=== PATIENT | male | born 1990 | race Caucasian/White ===

== ENCOUNTER 2019-04-19 18:46 | Emergency (ER) | payer BC ==
[2019-04-19 19:38] LABS: Appearance CLEAR (CLEAR); Bilirubin NEGATIVE (NEGATIVE); Blood NEGATIVE Ery/ul (0-5); Glucose NEGATIVE (NEGATIVE); Ketones NEGATIVE (NEGATIVE); Leukocyte Esterase NEGATIVE (NEGATIVE); Mucus SLIGHT /HPF (NEGATIVE); Nitrite NEGATIVE (NEGATIVE); Protein,Urine Dip NEGATIVE (Negative); Specific Gravity 1.003 (1.005-1.025); Urobilinogen NEGATIVE mg/dL (0-1)
[2019-04-19 19:49] LABS: BASOPHIL % 0.2 % (0.0-0.4); Basophil (Absolute #) 0.02 (0-0.4); Eosinophil % 0.5 % (0.00-5.0); Eosinophil (Absolute #) 0.04 (0-0.5); Granulocyte Absolute (ANC) 6.69 (1.4-6.9); Granulocytes % 83.4 % (36.0-66.0); Hemoglobin 14.3 gm/dl (12.5-18.0); Lymphocyte (Absolute #) 1.12 (1.0-4.6); Mean Cell Volume 88.4 fl (78-100); Mean Corpuscular Hemoglobin 30.1 pg (26-32); Mean Platelet Volume 9.4 fl (6-9.5); Monocyte (Absolute #) 0.15 (0.0-1.3); Monocytes % 1.9 % (0.0-12.0); Platelet Count 328 K/mm3 (150-450); Red Blood Count 4.75 M/mm3 (4.1-5.6); Red Cell Distribution Width 12.7 % (11.5-14.0)
[2019-04-19 20:12] LABS: ALBUMIN 4.8 g/dL (3.5-5.0); ALKALINE PHOSPHATASE 57 U/L (38-126); ANION GAP 14.6 MEQ/L (5-15); BLOOD UREA NITROGEN 15 mg/dL (9-20); CHLORIDE 108 mmol/L (98-107); Calcium 9.8 mg/dL (8.4-10.2); Carbon Dioxide 23 mmol/L (22-30); Glucose 120 mg/dL (74-106); NT PRO BNP 51.6 pg/mL (0-450); Potassium 4.5 mmol/L (3.5-5.1); SGOT/AST 27 U/L (17-59); SGPT/ALT 32 U/L (0-50); SODIUM 141 mmol/L (137-145); Total Protein 8.5 g/dL (6.3-8.2)
[2019-04-19] MEDS ORDERED: Levofloxacin 250MG Tablet PO ONE (22:21)
[2019-04-19] MEDS ORDERED: Levofloxacin 250MG Tablet ONE (22:25)
--- NOTE | 2019-04-19 22:29 | ERPHSYRPT ---
- History of Present Illness Source: patient Exam Limitations: no limitations Patient Subjective Stated Complaint: short of breath, lethargic, weak, blood in stool, diarrhea, hx of IBS, is on a tapering dose of prednisone and taking Augmentin, he had went to his doctor about 4-5 days ago and first they told him that he had bronchitis and then they told him that the xray was clear, cough Triage Nursing Assessment: Pt walks into the ER with no issues with gait, c/o of not feeling well for the past week, short of breath, weak, hypertensive, pulses normal, strong family history of cardio problems, bright red blood in stools last week, Physician History: Pt is a 28 y/o male with a recent h/o SOB, pain in his chest on left laterally, with exertion. Pt was seen by his PCP, that did some lab work, but did not check D dimer. As pt is a non smoker, and was very SOB and hypoxic, his that is an ER nurse, brought him to the ER for a work up. Pt has no palpitations, or diaphoresis. No F/C/S. N9o N/V/D or abdominal pain. Timing/Duration: day(s) Activities at Onset: none Severity of Dyspnea-Max: moderate Severity of Dyspnea-Current: mild Possible Cause: no prior episodes Modifying Factors: Improves With: lying down, rest Associated Symptoms: painful breathing Allergies/Adverse Reactions: acetaminophen [From Vicodin] Adverse Reaction (Verified 04/19/19 19:09) hydrocodone [From Vicodin] Adverse Reaction (Verified 04/19/19 19:09) - Review of Systems Constitutional: No Fever, No Chills Eyes: No Symptoms Ears, Nose, & Throat: No Symptoms Respiratory: Dyspnea, Dyspnea on Exertion (HERNANDEZ), Other (pluritic chest pain) Cardiac: No Chest Pain, No Edema, No Syncope Abdominal/Gastrointestinal: No Abdominal Pain, No Nausea, No Vomiting, No Diarrhea Genitourinary Symptoms: No Dysuria Musculoskeletal: No Back Pain, No Neck Pain Neurological: No Dizziness, No Focal Weakness, No Sensory Changes - Past Medical History Respiratory History: Other GI Medical History: GERD, Irritable Bowel Psycho-Social History: Anxiety Other Medical History: Neurocardiogenic syncope - Past Surgical History Past Surgical History: No Other Surgical History: bone spur on femur, toothpick removed from foot - Social History Smoking Status: Never smoker Exposure to second hand smoke: No Drug Use: none Patient Lives Alone: No - Nursing Vital Signs Nursing Vital Signs: Initial Vital Signs Pulse Rate 73 04/19/19 18:57 Respiratory Rate 16 04/19/19 18:57 Blood Pressure 162/93 04/19/19 18:57 O2 Sat by Pulse Oximetry 98 04/19/19 18:57 Pain Scale Pain Intensity 0 - Physical Exam General Appearance: no apparent distress, alert Eye Exam: PERRL/EOMI Ears, Nose, Throat Exam: hearing grossly normal Neck Exam: normal inspection, supple Respiratory Exam: normal breath sounds Cardiovascular/Chest Exam: normal heart sounds, regular rate/rhythm Abdominal/Gastrointestinal Exam: soft, No tenderness, No distention, No mass Extremity Exam: non-tender, normal range of motion, normal inspection, no calf tenderness, no pedal edema Neurologic Exam: alert, oriented x 3, cooperative, visual education director II-XII nml as tested, sensation nml, No motor deficits Skin Exam: normal color, warm, dry SpO2 Interpretation: normal SpO2: 96 O2 Delivery: Room Air - Course Nursing assessment & vital signs reviewed: Yes EKG Interpreted by Me: RATE (71 bpm), Sinus Rhythm, NORMAL AXIS, NORMAL QRS - CT Exams Chest CT Interpretation: Tele-radiologist Report (Moderate segmental PNA in the posterior segment right lowel lobe) Ordered Tests: Active Orders 24 hr Category Date Time Status CHEST WITHOUT CONTRAST [CT] Stat Exams 04/19/19 21:09 Taken CBC W DIFF Stat Lab 04/19/19 19:45 Completed CMP Stat Lab 04/19/19 19:45 Completed D-DIMER QUANTITATION Stat Lab 04/19/19 19:45 Completed NT PRO BNP Stat Lab 04/19/19 19:45 Completed Urinalysis with Microscopy Stat Lab 04/19/19 19:31 Completed Medication Summary Discontinued Medications Generic Name Dose Route Start Last Admin Trade Name Freq PRN Reason Stop Dose Admin Levofloxacin 750 mg 04/19/19 22:21 Levofloxacin 250mg Tablet PO 04/19/19 22:22 STAT ONE Lab/Rad Data: Laboratory Result Diagrams 04/19/19 19:45 04/19/19 19:45 Laboratory Results 04/19/19 04/19/19 04/19/19 Range/Units 19:45 19:45 19:45 WBC 8.0 (4.0-10.5) K/mm3 RBC 4.75 (4.1-5.6) M/mm3 Hgb 14.3 (12.5-18.0) gm/dl Hct 42.0 (42-50) % MCV 88.4 (78-100) fl MCH 30.1 (26-32) pg MCHC 34.0 (32-36) g/dl RDW 12.7 (11.5-14.0) % Plt Count 328 (150-450) K/mm3 MPV 9.4 (6-9.5) fl Gran % 83.4 H (36.0-66.0) % Eos # (Auto) 0.04 (0-0.5) Absolute Lymphs (auto) 1.12 (1.0-4.6) Absolute Monos (auto) 0.15 (0.0-1.3) Lymphocytes % 14.0 L (24.0-44.0) % Monocytes % 1.9 (0.0-12.0) % Eosinophils % 0.5 (0.00-5.0) % Basophils % 0.2 (0.0-0.4) % Absolute Granulocytes 6.69 (1.4-6.9) Basophils # 0.02 (0-0.4) D-Dimer < 215 L (215-500) ng/mL Sodium 141 (137-145) mmol/L Potassium 4.5 (3.5-5.1) mmol/L Chloride 108 H (98-107) mmol/L Carbon Dioxide 23 (22-30) mmol/L Anion Gap 14.6 (5-15) MEQ/L BUN 15 (9-20) mg/dL Creatinine 1.00 (0.66-1.25) mg/dL Estimated GFR > 60.0 ML/MIN Glucose 120 H (74-106) mg/dL Calcium 9.8 (8.4-10.2) mg/dL Total Bilirubin 0.70 (0.2-1.3) mg/dL AST 27 (17-59) U/L ALT 32 (0-50) U/L Alkaline Phosphatase 57 (38-126) U/L NT-Pro-B Natriuret Pep 51.6 (0-450) pg/mL Serum Total Protein 8.5 H (6.3-8.2) g/dL Albumin 4.8 (3.5-5.0) g/dL Urine Color (YELLOW) Urine Appearance (CLEAR) Urine pH (5-6) Ur Specific Golden (1.005-1.025) Urine Protein (Negative) Urine Ketones (NEGATIVE) Urine Blood (0-5) Charli/ul Urine Nitrite (NEGATIVE) Urine Bilirubin (NEGATIVE) Urine Urobilinogen (0-1) mg/dL Ur Leukocyte Esterase (NEGATIVE) Urine WBC (Auto) (0-5) /HPF Urine RBC (Auto) (0-2) /HPF U Epithel Cells (Auto) (FEW) /HPF Urine Bacteria (Auto) (NEGATIVE) /HPF Urine Mucus (Auto) (NEGATIVE) /HPF Urine Glucose (NEGATIVE) mg/dL 04/19/19 Range/Units 19:31 WBC (4.0-10.5) K/mm3 RBC (4.1-5.6) M/mm3 Hgb (12.5-18.0) gm/dl Hct (42-50) % MCV (78-100) fl MCH (26-32) pg MCHC (32-36) g/dl RDW (11.5-14.0) % Plt Count (150-450) K/mm3 MPV (6-9.5) fl Gran % (36.0-66.0) % Eos # (Auto) (0-0.5) Absolute Lymphs (auto) (1.0-4.6) Absolute Monos (auto) (0.0-1.3) Lymphocytes % (24.0-44.0) % Monocytes % (0.0-12.0) % Eosinophils % (0.00-5.0) % Basophils % (0.0-0.4) % Absolute Granulocytes (1.4-6.9) Basophils # (0-0.4) D-Dimer (215-500) ng/mL Sodium (137-145) mmol/L Potassium (3.5-5.1) mmol/L Chloride (98-107) mmol/L Carbon Dioxide (22-30) mmol/L Anion Gap (5-15) MEQ/L BUN (9-20) mg/dL Creatinine (0.66-1.25) mg/dL Estimated GFR ML/MIN Glucose (74-106) mg/dL Calcium (8.4-10.2) mg/dL Total Bilirubin (0.2-1.3) mg/dL AST (17-59) U/L ALT (0-50) U/L Alkaline Phosphatase (38-126) U/L NT-Pro-B Natriuret Pep (0-450) pg/mL Serum Total Protein (6.3-8.2) g/dL Albumin (3.5-5.0) g/dL Urine Color COLORLESS (YELLOW) Urine Appearance CLEAR (CLEAR) Urine pH 8.0 (5-6) Ur Specific Golden 1.003 (1.005-1.025) Urine Protein NEGATIVE (Negative) Urine Ketones NEGATIVE (NEGATIVE) Urine Blood NEGATIVE (0-5) Charli/ul Urine Nitrite NEGATIVE (NEGATIVE) Urine Bilirubin NEGATIVE (NEGATIVE) Urine Urobilinogen NEGATIVE (0-1) mg/dL Ur Leukocyte Esterase NEGATIVE (NEGATIVE) Urine WBC (Auto) NONE (0-5) /HPF Urine RBC (Auto) NONE (0-2) /HPF U Epithel Cells (Auto) NONE (FEW) /HPF Urine Bacteria (Auto) NONE (NEGATIVE) /HPF Urine Mucus (Auto) SLIGHT (NEGATIVE) /HPF Urine Glucose NEGATIVE (NEGATIVE) mg/dL - Progress Progress: improved Air Movement: good Progress Note: 04/19/19 22:30 Pt was seen and evaluated. All lab work was normal, as well as CXR at his PCP. I decided to do a CT to r/o any other pathology. Pt was diagnosed with R LL PNA. He got Levaquin 750mg PO in the ED, and a prescription will be e-scribed for him. Blood Culture(s) Obtained: No Antibiotics given: Yes Will see patient in: office Counseled pt/family regarding: need for follow-up - Departure Departure Disposition: Home Clinical Impression: RLL pneumonia Condition: Stable Critical Care Time: No Referrals: Provider,Unknown [Primary Care Provider] - Additional Instructions: Finish Levaquin as ordered. F/U with PCP. Prescriptions: Levofloxacin [Levaquin] 500 mg PO DAILY #5 tablet
[2019-04-19 22:45] VITALS: BP 128/66; PULSE 77; O2SAT 97
--- NOTE | 2019-04-20 08:33 | XRAY ---
Indication: Short of breath and fatigue one week. Multiple contiguous axial images obtained through the chest without contrast as ordered. Comparison: None Lungs demonstrate small focus posterior right lower lobe airspace opacity. Elsewhere minimal bibasilar dependent atelectasis. No suspicious mass, nodule, or effusion. Heart is not enlarged. Aorta is normal in course and caliber. No pathologic mediastinal lymphadenopathy. Bony thorax intact. Limited upper abdomen unremarkable. Impression: Small focus right lower lobe airspace disease. Comment: Preliminary interpretation was made by [facility]. No discrepancy. CTDI 17.10
== END 2019-04-19 22:43 | disposition home or self-care (01) ==
LOC: ED 18:46
DX: J18.9 Pneumonia, unspecified organism (principal)
CPT/HCPCS: 36000; 36415; 71250; 80053; 81001; 83880; 85025; 85379; 99284; A9270-GY

== ENCOUNTER 2020-06-13 16:40 | Emergency (ER) | payer BC ==
[2020-06-13] MEDS ORDERED: BABY ASPIRIN 81 MG CHEW PO ONE (16:57)
--- NOTE | 2020-06-13 16:57 | ERPHSYRPT ---
- History of Present Illness Time Seen by Provider: 06/13/20 16:45 Historian: patient Exam Limitations: no limitations Patient Subjective Stated Complaint: Chest pain Triage Nursing Assessment: Patient ambulated back to ED and transferred self to bed. Patient A+O X3. Patient's skin pink, warm and dry. Patient complains of intermittent chest pain 6/10 sharp pain in the middle of the chest to left side that started about 1000 today. Patient's lungs clear a/p mark. No edema noted. Heart tones audible. Physician History: This is a 29-year-old white male with a history of panic attacks who presents with localized, sharp substernal, central chest pain that began suddenly at 10 AM this morning. The pain has not let up. Patient became concerned. 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 Also, he recently had a child. Patient is not short of breath. He has not taken any nitroglycerin or aspirin today. He has no documented cardiac disease. He has not had a fever or cough. Timing/Duration: today Activities at Onset: none Quality: sharpness Location: substernal, central Chest Pain Radiation: no radiation Severity of Pain-Max: mild Severity of Pain-Current: mild Modifying Factors: Improves With: nothing Prior Chest Pain/Cardiac Workup: no prior cardiac workup Nitro Today/Relief: no nitro taken today Aspirin Treatment Today: no aspirin today Allergies/Adverse Reactions: acetaminophen [From Vicodin] Adverse Reaction (Verified 06/13/20 16:43) hydrocodone [From Vicodin] Adverse Reaction (Verified 06/13/20 16:43) Home Medications: No Reportable Medications [No Reported Medications] 06/13/20 [History] Hx Influenza Vaccination/Date Given: No Hx Pneumococcal Vaccination/Date Given: No Immunizations Up to Date: Yes Travel Risk - International Travel Have you traveled outside of the country in past 3 weeks: No - Coronavirus Screening Are you exhibiting any of the following symptoms?: No Close contact with a COVID-19 positive Pt in past 14-21 Days: No - Review of Systems Constitutional: No Symptoms Eyes: No Symptoms Ears, Nose, & Throat: No Symptoms Respiratory: No Symptoms Cardiac: Chest Pain Abdominal/Gastrointestinal: No Symptoms Genitourinary Symptoms: No Symptoms Musculoskeletal: No Symptoms Skin: No Symptoms Neurological: No Symptoms Psychological: No Symptoms Endocrine: No Symptoms Hematologic/Lymphatic: No Symptoms Immunological/Allergic: No Symptoms All Other Systems: Reviewed and Negative - Past Medical History Neurological History: No Pertinent History ENT History: No Pertinent History Cardiac History: No Pertinent History Respiratory History: Other Endocrine Medical History: No Pertinent History Musculoskeletal History: No Pertinent History GI Medical History: GERD, Irritable Bowel History: No Pertinent History Psycho-Social History: Anxiety Male Reproductive Disorders: No Pertinent History Other Medical History: Neurocardiogenic syncope - Past Surgical History Past Surgical History: Yes Neuro Surgical History: No Pertinent History Respiratory: No Pertinent History Gastrointestinal: No Pertinent History Genitourinary: No Pertinent History Musculoskeletal: No Pertinent History Male Surgical History: No Pertinent History Other Surgical History: bone spur on femur and left scapula toothpick removed from foot, ballon sinusplasty, nodules on right lung - Social History Smoking Status: Never smoker Exposure to second hand smoke: No Drug Use: none Patient Lives Alone: No - Nursing Vital Signs Nursing Vital Signs: Initial Vital Signs Temperature 98.1 F 06/13/20 16:43 Pulse Rate 78 06/13/20 16:43 Respiratory Rate 18 06/13/20 16:43 Blood Pressure 151/92 06/13/20 16:43 O2 Sat by Pulse Oximetry 99 06/13/20 16:43 Pain Scale Pain Intensity 5 - Physical Exam General Appearance: no apparent distress, alert, anxiety Eye Exam: PERRL/EOMI, eyes nml inspection Ears, Nose, Throat Exam: normal ENT inspection, moist mucous membranes Neck Exam: normal inspection, non-tender, supple, full range of motion Respiratory Exam: normal breath sounds, chest tenderness, lungs clear, airway intact, No respiratory distress Cardiovascular Exam: regular rate/rhythm, normal heart sounds, normal peripheral pulses Gastrointestinal/Abdomen Exam: soft, normal bowel sounds, No tenderness Rectal Exam: not done Back Exam: normal inspection, normal range of motion, No CVA tenderness, No vertebral tenderness Extremity Exam: normal inspection, normal range of motion, pelvis stable Neurologic Exam: alert, oriented x 3, cooperative, community dietitian II-XII nml as tested Skin Exam: normal color, warm, dry Lymphatic Exam: No adenopathy SpO2 Interpretation: normal SpO2: 99 O2 Delivery: Room Air - Course Nursing assessment & vital signs reviewed: Yes EKG Interpreted by Me: RATE (71), Sinus Rhythm, NORMAL AXIS, NORMAL INTERVALS, NORMAL QRS, NORMAL ST-T, Other (No acute ischemic changes. Comparison EKG dated 04/19/2019 shows no changes when compared to this EKG.) Ordered Tests: Active Orders 24 hr Category Date Time Status Patient Services Assistant STAT Care 06/13/20 16:58 Active EKG-ER Only STAT Care 06/13/20 16:57 Active IV Insertion STAT Care 06/13/20 16:57 Active Pulse Oximetry (ED) STAT Care 06/13/20 16:57 Active CHEST 1 VIEW (PORTABLE) Stat Exams 06/13/20 16:58 Taken CBC W DIFF Stat Lab 06/13/20 17:00 Completed CMP Stat Lab 06/13/20 17:00 Completed D-DIMER QUANTITATIVE Stat Lab 06/13/20 17:00 Completed TROPONIN Q3H Lab 06/13/20 17:00 Completed TROPONIN Q3H Lab 06/13/20 20:00 Ordered TROPONIN Q3H Lab 06/13/20 23:00 Ordered TROPONIN Q3H Lab 06/14/20 02:00 Ordered TROPONIN Q3H Lab 06/14/20 05:00 Ordered Medication Summary Discontinued Medications Generic Name Dose Route Start Last Admin Trade Name Freq PRN Reason Stop Dose Admin Aspirin 324 mg 06/13/20 16:57 06/13/20 17:00 Baby Aspirin 81 Mg Chew PO 06/13/20 16:58 324 mg STAT ONE Administration Lab/Rad Data: Laboratory Result Diagrams 06/13/20 17:00 06/13/20 17:00 Laboratory Results 06/13/20 06/13/20 06/13/20 Range/Units 17:00 17:00 17:00 WBC (4.0-10.5) K/mm3 RBC (4.1-5.6) M/mm3 Hgb (12.5-18.0) gm/dl Hct (42-50) % MCV (78-100) fl MCH (26-32) pg MCHC (32-36) g/dl RDW (11.5-14.0) % Plt Count (150-450) K/mm3 MPV (7.5-11.0) fl Gran % (36.0-66.0) % Eos # (Auto) (0-0.5) Absolute Lymphs (auto) (1.0-4.6) Absolute Monos (auto) (0.0-1.3) Lymphocytes % (24.0-44.0) % Monocytes % (0.0-12.0) % Eosinophils % (0.00-5.0) % Basophils % (0.0-0.4) % Absolute Granulocytes (1.4-6.9) Basophils # (0-0.4) D-Dimer < 215 L (215-500) ng/mL Sodium 140 (137-145) mmol/L Potassium 4.1 (3.5-5.1) mmol/L Chloride 106 (98-107) mmol/L Carbon Dioxide 26 (22-30) mmol/L Anion Gap 11.3 (5-15) MEQ/L BUN 16 (9-20) mg/dL Creatinine 1.01 (0.66-1.25) mg/dL Estimated GFR > 60.0 ML/MIN Glucose 114 H (74-106) mg/dL Calcium 9.6 (8.4-10.2) mg/dL Total Bilirubin 0.70 (0.2-1.3) mg/dL AST 31 (17-59) U/L ALT 44 (0-50) U/L Alkaline Phosphatase 55 (38-126) U/L Troponin I < 0.012 (0.000-0.034) ng/mL Serum Total Protein 8.7 H (6.3-8.2) g/dL Albumin 5.0 (3.5-5.0) g/dL 06/13/20 Range/Units 17:00 WBC 6.7 (4.0-10.5) K/mm3 RBC 4.97 (4.1-5.6) M/mm3 Hgb 15.0 (12.5-18.0) gm/dl Hct 43.9 (42-50) % MCV 88.3 (78-100) fl MCH 30.2 (26-32) pg MCHC 34.2 (32-36) g/dl RDW 12.6 (11.5-14.0) % Plt Count 335 (150-450) K/mm3 MPV 9.3 (7.5-11.0) fl Gran % 39.0 (36.0-66.0) % Eos # (Auto) 0.28 (0-0.5) Absolute Lymphs (auto) 3.10 (1.0-4.6) Absolute Monos (auto) 0.68 (0.0-1.3) Lymphocytes % 46.3 H (24.0-44.0) % Monocytes % 10.1 (0.0-12.0) % Eosinophils % 4.2 (0.00-5.0) % Basophils % 0.4 (0.0-0.4) % Absolute Granulocytes 2.61 (1.4-6.9) Basophils # 0.03 (0-0.4) D-Dimer (215-500) ng/mL Sodium (137-145) mmol/L Potassium (3.5-5.1) mmol/L Chloride (98-107) mmol/L Carbon Dioxide (22-30) mmol/L Anion Gap (5-15) MEQ/L BUN (9-20) mg/dL Creatinine (0.66-1.25) mg/dL Estimated GFR ML/MIN Glucose (74-106) mg/dL Calcium (8.4-10.2) mg/dL Total Bilirubin (0.2-1.3) mg/dL AST (17-59) U/L ALT (0-50) U/L Alkaline Phosphatase (38-126) U/L Troponin I (0.000-0.034) ng/mL Serum Total Protein (6.3-8.2) g/dL Albumin (3.5-5.0) g/dL - Progress Progress: improved, re-examined Air Movement: good Progress Note: 06/13/20 18:11 Chest x-ray reveals no evidence of any acute cardiopulmonary process Blood Culture(s) Obtained: No Antibiotics given: No Counseled pt/family regarding: lab results, diagnosis, need for follow-up, rad results - Departure Departure Disposition: Home Clinical Impression: Non-cardiac chest pain Condition: Stable Critical Care Time: No Referrals: Provider,Unknown [Primary Care Provider] - Instructions: Chest Pain (DC) Additional Instructions: Drink plenty of fluids. Follow-up with your primary care physician for further management of your symptoms.
[2020-06-13 17:11] LABS: Absolute Neutrophil Ct (ANC) 2.61 (1.4-6.9); BASOPHIL % 0.4 % (0.0-0.4); Basophil (Absolute #) 0.03 (0-0.4); Eosinophil % 4.2 % (0.00-5.0); Eosinophil (Absolute #) 0.28 (0-0.5); Hematocrit 43.9 % (42-50); Lymphocytes % 46.3 % (24.0-44.0); Mean Cell Volume 88.3 fl (78-100); Mean Corpuscular Hemoglobin 30.2 pg (26-32); Mean Corpuscular Hgb Concent. 34.2 g/dl (32-36); Mean Platelet Volume 9.3 fl (7.5-11.0); Monocyte (Absolute #) 0.68 (0.0-1.3); Monocytes % 10.1 % (0.0-12.0); Platelet Count 335 K/mm3 (150-450); Red Blood Count 4.97 M/mm3 (4.1-5.6); Red Cell Distribution Width 12.6 % (11.5-14.0); White Blood Count 6.7 K/mm3 (4.0-10.5)
[2020-06-13 17:22] LABS: ALKALINE PHOSPHATASE 55 U/L (38-126); ANION GAP 11.3 MEQ/L (5-15); BLOOD UREA NITROGEN 16 mg/dL (9-20); CHLORIDE 106 mmol/L (98-107); Calcium 9.6 mg/dL (8.4-10.2); Carbon Dioxide 26 mmol/L (22-30); Creatinine 1 1.01 mg/dL (0.66-1.25); EST GLOMERULAR FILTRATION RATE > 60.0 ML/MIN; Glucose 114 mg/dL (74-106); Potassium 4.1 mmol/L (3.5-5.1); SGOT/AST 31 U/L (17-59); SGPT/ALT 44 U/L (0-50); SODIUM 140 mmol/L (137-145); Total Protein 8.7 g/dL (6.3-8.2)
[2020-06-13 18:11] VITALS: O2SAT 99
[2020-06-13 18:33] VITALS: BP 136/80; PULSE 64
--- NOTE | 2020-06-13 20:35 | XRAY ---
Indication: Chest pain. Comparison: December 05, 2008. Portable chest again demonstrates normal heart, lungs, and bony thorax.
== END 2020-06-13 18:36 | disposition home or self-care (01) ==
LOC: ED 16:40
DX: R07.89 Other chest pain (principal)
CPT/HCPCS: 36000; 36415; 71045; 80053; 84484; 85025; 85379; 93005; 93041; 94760; 99284; A9270-GY

== ENCOUNTER 2022-03-18 21:48 | Emergency (ER) | payer BC ==
--- NOTE | 2022-03-18 22:43 | ERPHSYRPT ---
- History of Present Illness Time Seen by Provider: 03/18/22 22:00 Source: patient, family Exam Limitations: no limitations Patient Subjective Stated Complaint: rt lower leg swelling and edema Triage Nursing Assessment: pt c/o rt lower leg pain with some swelling. Pt began feeling pain/discomfort yesterday but noticed swelling and tightness today. Pt describes it as a constant dull ache. Physician History: This is a 31-year-old, active white male who states that yesterday he started having some pain in his right lower extremity below the knee. It is actually worsened and he is having some swelling to the medial aspect of his tibia on the right side with cramping in his right calf. Patient has no history of DVTs and no history of bleeding or clotting disorders. Patient also has not had a cough or shortness of breath or hemoptysis. He has no chest pain. He has not been traveling long distance in the car or in a plane. He is concerned for blood clot. Occurred: yesterday Quality: constant, aching Severity of Pain-Max: mild Severity of Pain-Current: mild Lower Extremities Pain: leg: right (Below the knee) Modifying Factors: Improves With: movement Associated Symptoms: none Allergies/Adverse Reactions: moxifloxacin Allergy (Verified 03/18/22 22:06) Nausea and Vomiting acetaminophen [From Vicodin] Adverse Reaction (Verified 03/18/22 22:05) hydrocodone [From Vicodin] Adverse Reaction (Verified 03/18/22 22:05) Home Medications: Omeprazole 40 mg PO DAILY 03/18/22 [History] Hx Tetanus, Diphtheria Vaccination/Date Given: Yes Hx Influenza Vaccination/Date Given: No Hx Pneumococcal Vaccination/Date Given: No Immunizations Up to Date: Yes Travel Risk - International Travel Have you traveled outside of the country in past 3 weeks: No - Coronavirus Screening Are you exhibiting any of the following symptoms?: No Close contact with a COVID-19 positive Pt in past 14-21 Days: No - Vaccine Status Have you recieved a Covid-19 vaccination: No - Review of Systems Constitutional: No Symptoms Eyes: No Symptoms Ears, Nose, & Throat: No Symptoms, Throat Swelling Cardiac: No Symptoms Abdominal/Gastrointestinal: No Symptoms Genitourinary Symptoms: No Symptoms Musculoskeletal: Other (Achiness, cramping right calf with associated swelling) Skin: No Symptoms Neurological: No Symptoms Psychological: No Symptoms Endocrine: No Symptoms Hematologic/Lymphatic: No Symptoms Immunological/Allergic: No Symptoms All Other Systems: Reviewed and Negative - Past Medical History Pertinent Past Medical History: Yes Neurological History: No Pertinent History ENT History: No Pertinent History Cardiac History: No Pertinent History Respiratory History: Other Endocrine Medical History: No Pertinent History Musculoskeletal History: No Pertinent History GI Medical History: GERD, Irritable Bowel History: No Pertinent History Psycho-Social History: Anxiety Male Reproductive Disorders: No Pertinent History Other Medical History: Neurocardiogenic syncope, nodules on rt lung, bone spur to scapula - Past Surgical History Past Surgical History: Yes Neuro Surgical History: No Pertinent History Respiratory: No Pertinent History Gastrointestinal: No Pertinent History Genitourinary: No Pertinent History Musculoskeletal: No Pertinent History Male Surgical History: No Pertinent History Other Surgical History: bone spur on femur, toothpick removed from foot, ballon sinusplasty, - Social History Smoking Status: Never smoker Exposure to second hand smoke: No Drug Use: none Patient Lives Alone: No - Nursing Vital Signs Nursing Vital Signs: Initial Vital Signs Temperature 97.2 F 03/18/22 21:57 Pulse Rate 86 03/18/22 21:57 Respiratory Rate 18 03/18/22 21:57 Blood Pressure 149/102 03/18/22 21:57 O2 Sat by Pulse Oximetry 98 03/18/22 21:57 Pain Scale Pain Intensity 1 - Physical Exam General Appearance: no apparent distress, alert Eyes, Ears, Nose, Throat Exam: normal ENT inspection, moist mucous membranes Neck Exam: normal inspection, non-tender, supple, full range of motion Cardiovascular/Respiratory Exam: chest non-tender, no respiratory distress Gastrointestinal/Abdominal Exam: non-tender Back Exam: normal inspection Hips Exam: bilateral: non-tender, normal inspection, normal range of motion, no evidence of injury Legs Exam: right leg: soft tissue tenderness (Right calf below the knee), swelling (Mild medial aspect right tibia soft tissue), left leg: non-tender, bilateral leg: normal inspection, normal range of motion, no evidence of injury Knees Exam: bilateral knee: non-tender, normal inspection, normal range of motion, no evidence of injury Ankle Exam: bilateral ankle: non-tender, normal inspection, normal range of motion, no evidence of injury Foot Exam: bilateral foot: non-tender, normal inspection, normal range of motion, no evidence of injury Neuro/Tendon Exam: normal sensation, normal motor functions, normal tendon func tions, responds to pain, no evidence tendon injury Mental Status Exam: alert, oriented x 3, cooperative Skin Exam: normal color, warm, dry SpO2: 98 O2 Delivery: Room Air - Course Nursing assessment & vital signs reviewed: Yes Ordered Tests: Active Orders 24 hr Category Date Time Status D-DIMER QUANTITATIVE Stat Lab 03/18/22 22:31 Completed Lab/Rad Data: Laboratory Results 03/18/22 Range/Units 22:31 D-Dimer < 0.19 (0.0-0.50) mg/L - Departure Departure Disposition: Home Clinical Impression: Right leg swelling Condition: Stable Critical Care Time: No Referrals: ADEOLA LEON MD [Primary Care Provider] - Follow up/PCP as directed Additional Instructions: Drink plenty of fluids. May take a daily aspirin. Return to the emergency department if swelling increases.
[2022-03-18 23:21] VITALS: BP 138/78; PULSE 74; O2SAT 97
== END 2022-03-18 23:16 | disposition home or self-care (01) ==
LOC: ED 21:48
DX: R60.0 Localized edema (principal); M79.661 Pain in right lower leg; R25.2 Cramp and spasm; Z28.310 Unvaccinated for COVID-19
CPT/HCPCS: 36415; 85379; 99282

== ENCOUNTER 2024-02-19 18:11 | Emergency (ER) | payer BC, OTHER ==
[2024-02-19 18:21] VITALS: TEMP 98.5
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
[2024-02-19 18:43] LABS: Absolute Neutrophil Ct (ANC) 3.51 x10^3/uL (1.78-5.38); BASOPHIL % 0.8 % (0.2-1.2); Basophil (Absolute #) 0.06 x10^3/uL (0.01-0.08); Eosinophil % 4.9 % (0.8-7.0); Eosinophil (Absolute #) 0.37 x10^3/uL (0.04-0.54); Hematocrit 41.4 % (40.1-51.0); Hemoglobin 14.2 g/dL (13.7-17.5); IMMATURE GRAN # 0.02 x10^3u/L (0.001-0.031); IMMATURE GRAN % 0.3 % (0.001-0.429); Lymphocyte (Absolute #) 3.11 x10^3/uL (1.32-3.57); Mean Cell Volume 85.9 fL (79.0-92.2); Mean Corpuscular Hemoglobin 29.5 pg (25.7-32.2); Mean Corpuscular Hgb Concent. 34.3 g/dL (32.3-36.5); Monocyte (Absolute #) 0.51 x10^3/uL (0.30-0.82); Monocytes % 6.7 % (5.3-12.2); Neutrophil % 46.3 % (34.0-67.9); Platelet Count 379 x10^3/uL (163-337); Red Blood Count 4.82 x10^6/uL (4.63-6.08); Red Cell Distribution Width 12.3 % (11.6-14.4); White Blood Count 7.6 x10^3/uL (4.23-9.07)
[2024-02-19] MEDS ORDERED: Sodium Chloride 0.9% 1000 ML 1,000 ML ONE (19:11)
[2024-02-19] MEDS: Sodium Chloride 0.9% 1000 ML 1,000 ML IV STA (19:12)
[2024-02-19 19:22] LABS: ALBUMIN 4.6 g/dL (3.5-5.0); ANION GAP 14.1 MEQ/L (5-15); BILIRUBIN,TOTAL 0.8 mg/dL (0.2-1.3); Calcium 9.8 mg/dL (8.4-10.2); Creatinine 1 1.16 mg/dL (0.66-1.25); EST GLOMERULAR FILTRATION RATE 84.8 ML/MIN; Potassium 4.1 mmol/L (3.5-5.1); Total Protein 8.5 g/dL (6.3-8.2)
[2024-02-19 20:02] VITALS: BP 128/81; PULSE 67; RESP 17
[2024-02-19 20:58] LABS: Amphetamine,Urine NEGATIVE (NEGATIVE); Barbiturate,Urine NEGATIVE (NEGATIVE); Benzodiazepine,Urine NEGATIVE (NEGATIVE); Cocaine,Urine NEGATIVE (NEGATIVE); Methadone,Urine NEGATIVE (NEGATIVE); Opiate,Urine NEGATIVE (NEGATIVE); PCP,Urine NEGATIVE (NEGATIVE); THC,Urine NEGATIVE (NEGATIVE)
[2024-02-19 21:44] LABS: TSH, 3RD Generation 2.251 mIU/L (0.470-4.680)
[2024-02-19 22:12] VITALS: O2SAT 98
--- NOTE | 2024-02-20 09:09 | XRAY ---
Indication: Chest pain. Comparison: June 13, 2020 Portable chest again demonstrates normal heart, lungs, and bony thorax.
== END 2024-02-19 21:10 | disposition home or self-care (01) ==
LOC: ED 18:11
DX: R07.89 Other chest pain (principal); E86.0 Dehydration; R06.02 Shortness of breath; R53.1 Weakness; E78.5 Hyperlipidemia, unspecified; Z79.899 Other long term (current) drug therapy
CPT/HCPCS: 36000; 36415; 71045; 80053; 80061; 80307; 83721; 84443; 84484; 85025; 93005; 99284